=== PATIENT | female | born 1985 | race Caucasian/White ===

== ENCOUNTER 2017-02-12 11:02 | Emergency (ER) | payer OTHER ==
[2017-02-12 11:07] VITALS: BP 126/80
[2017-02-12] MEDS ORDERED: LIDOCAINE 1% INJ-PF (10 MG/ML) 30 ML SDV INJ ONE (11:57)
--- NOTE | 2017-02-12 12:44 | ER Document Report ---
ED Hand/Wrist Injury - General Chief Complaint: Finger Injury Stated Complaint: LEFT HAND INJURY Time Seen by Provider: 02/12/17 11:57 Mode of Arrival: Ambulatory Information source: Patient Notes: Patient is a 31-year-old white female comes emergency room complaining of a laceration to the dorsal aspect of the left middle finger. 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 Patient states she would not have come but she could not get the bleeding to stop. She has full function of her finger according to her. The laceration is a flap type laceration. Patient also states she is up-to-date on her tetanus shot it has been less than 5 years. TRAVEL OUTSIDE OF THE [place] IN LAST 30 DAYS: No - HPI Patient complains to provider of: Laceration finger Injury to: Middle finger Onset: Just prior to arrival Where: School Timing: Constant, Better Quality of pain: Throbbing Severity: Mild Pain Level: 2 Context: Laceration - Related Data Allergies/Adverse Reactions: cefaclor [From Ceclor] Allergy (Verified 02/12/17 11:07) Past Medical History - General Information source: Patient - Social History Smoking Status: Never Smoker Chew tobacco use (# tins/day): No Frequency of alcohol use: None Drug Abuse: None Lives with: Family Family History: Reviewed & Not Pertinent Patient has suicidal ideation: No Patient has homicidal ideation: No Renal/ Medical History: Denies: Hx Peritoneal Dialysis Past Surgical History: Reports: Hx Section Review of Systems - Review of Systems Constitutional: No symptoms reported EENT: No symptoms reported Cardiovascular: No symptoms reported Respiratory: No symptoms reported Gastrointestinal: No symptoms reported Genitourinary: No symptoms reported Female Genitourinary: No symptoms reported Musculoskeletal: No symptoms reported, Joint pain Skin: See HPI, Other - Laceration Hematologic/Lymphatic: No symptoms reported Neurological/Psychological: No symptoms reported -: Yes All other systems reviewed and negative Physical Exam - Vital signs Vitals: Temp Pulse Resp BP Pulse Ox 98.3 F 88 16 126/80 H 97 02/12/17 11:04 02/12/17 11:04 02/12/17 11:04 02/12/17 11:04 02/12/17 11:04 Interpretation: Hypertensive - General General appearance: Appears well - Respiratory Respiratory status: No respiratory distress Breath sounds: Normal. No: Decreased air movement, Nonproductive cough, Productive cough, Rales, Rhonchi, Stridor, Wheezing, Other - Cardiovascular Rhythm: Regular Heart sounds: Normal auscultation Murmur: No - Extremities General upper extremity: Tender Hand: Tender, Laceration, Other - Physical exam patient's left hand shows that she has a 1 cm flap type laceration that occurred at the knuckle of her left middle finger. Patient was slicing and cut into the top portion. She has full flexion-extension of the finger passively and she has good strength with resistance. Eye is good cap refill in the nail bed of the finger. - Skin Skin Temperature: Warm Skin Color: [place], Other - Stated earlier patient's laceration is on the left middle finger at the MIP dorsal aspect. Bleeding currently controlled. Course - Vital Signs Vital signs: Temp Pulse Resp BP Pulse Ox 98.3 F 88 16 126/80 H 97 02/12/17 11:04 02/12/17 11:04 02/12/17 11:04 02/12/17 11:04 02/12/17 11:04 - Transfer of Care Notes: 02/12/17 12:45 Visualization of the cut under a bloodless field after applying pressure to the finger showed no sign of tendon damage. Procedures - Immobilization Left 3rd digit Time completed: 12:50 Pre-Proc Neuro Vasc Exam: Normal Immobilizer type: Finger protection, Finger splint (Static) Performed by: PCT Post-Proc Neuro Vasc Exam: Normal Alignment checked and good: Yes - Laceration/Wound Repair Left Dorsal 3rd digit Time completed: 12:46 Wound length (cm): 2 Wound's Depth, Shape: Flap Laceration pre-procedure: Sterile PPE donned, Betadine prep applied, Sterile drapes applied Anesthetic type: 1% Lidocaine Volume Anesthetic (mLs): 1 Wound explored: Clean Irrigated w/ Saline (mLs): 100 Wound Repaired With: Sutures Suture Size/Type: 4:0, Prolene Number of Sutures: 4 Layer Closure?: No Post-procedure wound care: Sterile dressing applied, Splint applied Post-procedure NV exam normal: Yes Discharge - Discharge Clinical Impression: Laceration of left middle finger Disposition: HOME, SELF-CARE Instructions: Antibiotic Ointment Protection ([facility]), Laceration Care ([facility]), Oral Narcotic Medication ([facility]) Additional Instructions: Home and rest. Keep the area clean and dry for 48 hours as much as possible. Use the splint for the next 4-5 days. I am placing her on antibiotics as we discussed taken well to the ground. As we also discussed if you should notice anything that appears different or is not healing appropriately before 8 days return to ER let us check it. Other than that you may leave the sutures in 8- 10 days and then I need to come out. You can do so by coming back to ER if you wish or by seeing her primary care provider. Prescriptions: Fluconazole [Diflucan] 150 mg PO ONCE PRN #1 tablet PRN Reason: Sulfamethoxazole/Trimethoprim [Bactrim Ds Tablet] 1 each PO BID #14 tablet
== END 2017-02-12 13:12 | disposition home or self-care (01) ==
LOC: ER 11:02
DX: S61.213A Laceration without foreign body of left middle finger without damage to nail, initial encounter (principal); W26.0XXA Contact with knife, initial encounter; Y93.G3 Activity, cooking and baking; Y92.215 Trade school as the place of occurrence of the external cause; Z88.1 Allergy status to other antibiotic agents
CPT/HCPCS: 99283; 12001; J3490